=== PATIENT | female | born 1960 | race Caucasian/White ===

== ENCOUNTER → 2019-03-15 16:17 | Outpatient (CLI) | payer OTHER, SELFPAY ==
--- NOTE | 2019-03-15 16:20 | DI.RAD.S_ITS ---
PROCEDURE: XR KNEE RT 3V INDICATIONS: right knee pain, concerned for possible patella injury TECHNIQUE: Pre-views of the knee were acquired. COMPARISON: None. FINDINGS: Bones: No dislocations. No suspicious bony lesions. There is a vertically oriented fracture through the junction of the lateral and middle thirds of the right patella, only slightly displaced at the articular surface. This appears acute or subacute, and deep to this area of injury at the lateral facet of the patellofemoral joint there is what appears to be a chronic osteochondral injury with subchondral cyst formation, and adjacent peripheral sclerosis, as are likely coincidental finding. It likely is a result of chronic degenerative thinning of the lateral facet articular cartilage. Soft tissues: No joint effusion. No suspicious soft tissue calcifications. IMPRESSION: Vertically oriented patellar fracture, minimally displaced, centered at the junction of the lateral and middle thirds of the patella. Chronic appearing degenerative change with thinning of the articular cartilage at the lateral facet of the patellofemoral joint, with an associated lateral trochlear groove osteochondral defect with reactive sclerosis surrounding the 1.2 cm lucency. Dictated by: Tony Lebron M.D. on 03/15/2019 at 17:08 Approved by: Tony Lebron M.D. on 03/15/2019 at 17:10
== END ==
PROVIDERS: Visit Provider Physician Assistant
DX: M25.561 Pain in right knee (principal); S82.091A Other fracture of right patella, initial encounter for closed fracture
CPT/HCPCS: 73562